=== PATIENT | female | born 1960 | race Hispanic/Latino ===

== ENCOUNTER 2020-10-10 12:30 | Observation (INO) | payer OTHER ==
[~2020-10-10] VITALS: Ht 153.2 cm; Wt 57.6 kg
[2020-10-10] MEDS ORDERED: ONDANSETRON HCL INJ 2MG/ML 2ML 2 MG/ML VIAL IV STA (12:59)
[2020-10-10] MEDS ORDERED: FAMOTIDINE 20 MG/2 ML VIAL IV STA (12:59)
[2020-10-10] MEDS ORDERED: DONNATAL/LIDOCAINE/MAALOX 30 ML SUSP PO SCH (13:15)
--- NOTE | 2020-10-10 13:21 | Emergency Department Note ---
History of Present Illnes History of Present Illness Chief Complaint: Abdominal Complaints History of Present Illness This is a 60 year old female that was seen at an urgent care 3 days ago for diffuse abdominal pain. Patient was told she had inflammation of her intestines was given clindamycin and metronidazole and was also given tramadol for pain. Patient states that the pain is now right lower quadrant, not improving. Patient with nausea, last bowel movement on Saturday. Patient did not take any pain medicine today. Currently pain is crampy, 9 out of 10. . Historian: Patient Arrival Mode: Car Additional Treatment TOPOGRAPHICAL FIELD ASSISTANT: NONE Onset (how long ago): day(s) (6) Location: RLQ Quality: cramp Radiation: Reports non-radiation Severity: moderate Onset quality: gradual Duration (how long): hour(s) (6) Timing of current episode: constant Progression: worsening Chronicity: new Context: Reports other (recent UC/ER); Denies recent illness, Denies recent surgery Relieving factors: none Exacerbating factors: none Associated symptoms: Reports denies other symptoms Past Medical/Family History Physician Review I have reviewed the patient's past medical and family history. Any updates have been documented here. Past Medical History Recent Fever: No Clinical Suspicion of Infectio: No New/Unexplained Change in Ment: No Past Medical History: Cancer Other Medical History: STOMACHE CANCER- DIAGNOSED 2019. Other Surgery: PORT A CATH REMOVAL Review of Systems Review of Systems Constitutional: Reports no symptoms EENTM: Reports no symptoms Cardiovascular: Reports no symptoms Respiratory: Reports no symptoms Gastrointestinal: Reports as per HPI Genitourinary: Reports no symptoms Musculoskeletal: Reports no symptoms Integumentary: Reports no symptoms Neurological: Reports no symptoms Psychological: Reports no symptoms Endocrine: Reports no symptoms Hematological/Lymphatic: Reports no symptoms Physical Exam Related Data Allergies: Coded Allergies: No Known Allergies (Unverified , 10/10/20) Triage Vital Signs Vital Signs Date Time Temp Pulse Resp B/P (MAP) Pulse Ox O2 Delivery O2 Flow Rate FiO2 10/10/20 12:47 99.9 108 18 100/65 100 Vital signs reviewed: Yes Physical Exam CONSTITUTIONAL Constitutional: Present well-developed, Present well-nourished HENT HENT: Present normocephalic, Present atraumatic, Present oropharynx clear/moist, Present nose normal HENT L/R: Present left ext ear normal, Present right ext ear normal EYES Eyes: Reports PERRL, Reports conjunctivae normal NECK Neck: Present ROM normal PULMONARY Pulmonary: Present effort normal, Present breath sounds normal CARDIOVASCULAR Cardiovascular: Present regular rhythm, Present heart sounds normal, Present capillary refill normal, Present tachycardia GASTROINTESTINAL Abdominal: Present soft, Present bowel sounds normal, Present tender (. Tenderness to palpation palpation right lower quadrant, no peritoneal signs) GENITOURINARY Genitourinary: Present exam deferred SKIN Skin: Present warm, Present dry MUSCULOSKELETAL Musculoskeletal: Present ROM normal NEUROLOGICAL Neurological: Present alert, Present oriented x 3, Present no gross motor or sensory deficits PSYCHOLOGICAL Psychological: Present mood/affect normal, Present judgement normal Assessment & Plan Medical Decision Making MDM Pt a 60-year-old female with six-day history of abdominal pain, first diffuse now to right lower quadrant. We'll check a urine, we will also check a CT to make sure this is not appendicitis kidney stone or aorta. Patient currently on clindamycin and metronidazole which would not cover for . EKG interpreted by me shows sinus tachycardia at a rate of 101, left axis deviation, T-wave inversion in V1, nonspecific T-wave inversion in lead 3. Nondiagnostic EKG. Reassessment Reassessment [address] evidence of appendicitis, will admit and treat with zosyn Assessment & Plan Final Impression: (1) Appendicitis Depart Disposition: ADMITTED Last Vital Signs Date Time Temp Pulse Resp B/P (MAP) Pulse Ox O2 Delivery O2 Flow Rate FiO2 10/10/20 12:47 99.9 108 18 100/65 100 Medications in the ED Ondansetron HCl 4 mg NOW STAT IV ; Start 10/10/20 at 12:59; Stop 10/10/20 at 13:07; Status DC Belladonna Alkaloids/ Phenobarbital 10 ml ONCE PO ; Start 10/10/20 at 13:15; Stop 10/10/20 at 13:45 Famotidine 20 mg NOW STAT IV ; Start 10/10/20 at 12:59; Stop 10/10/20 at 13:07; Status DC MICHAEL FRANCO MD Oct 10, 2020 13:21
[2020-10-10] MEDS ORDERED: LIDOCAINE VISC 2% SOLN 15 ML UDC ONE (13:27)
[2020-10-10] MEDS ORDERED: BELLADONNA ALK/PHENOBARBITAL 5 ML UDC ONE (13:27)
[2020-10-10] MEDS ORDERED: MAGNESIUM/ALUMINUM/SIMETHICONE 30 ML UDC ONE (13:27)
[2020-10-10] MEDS ORDERED: LACTATED RINGER'S 500 ML IV ONE (13:30)
[2020-10-10 13:34] LABS: BASOPHILS % 0.3 % (0.0-1.0); EOSINOPHILS # (AUTO) 0.1 (0.0-0.4); EOSINOPHILS % 0.9 % (0.0-6.0); HEMATOCRIT 35.9 % (34.2-44.1); HEMOGLOBIN 11.6 g/dL (12.0-16.0); LYMPHOCYTES # (AUTO) 0.6 (1.0-3.2); LYMPHOCYTES % 6.8 % (18.0-39.1); MEAN CORPUSCULAR HEMOGLOBIN 30.7 pg (28-32); MEAN CORPUSCULAR HGB CONC 32.3 g/dL (31-35); MONOCYTES # (AUTO) 0.6 (0.2-0.8); MONOCYTES % 6.6 % (4.4-11.3); PLATELET COUNT 206 x10e3/uL (140-360); RED BLOOD COUNT 3.78 x10e6/uL (3.6-5.1); RED CELL DISTRIBUTION WIDTH 14.3 % (11.7-14.4)
[2020-10-10 13:51] LABS: CLARITY,URINE CLEAR (CLEAR); COLOR,URINE YELLOW (YELLOW); LEUKOCYTE ESTERASE ,URINE NEGATIVE (NEGATIVE); NITRITE,URINE NEGATIVE (NEGATIVE)
[2020-10-10 13:52] LABS: BILIRUBIN,URINE SMALL (NEGATIVE); KETONES,URINE 2+ (NEGATIVE); PROTEIN,URINE DIPSTICK TRACE (NEGATIVE)
[2020-10-10 14:02] LABS: ALANINE AMINOTRANSFERASE 39 IU/L (0-55); ALBUMIN 3.3 g/dL (3.5-5.0); ALBUMIN/GLOBULIN RATIO 0.7 (0.8-2.0); ALKALINE PHOSPHATASE 311 IU/L (40-150); BLOOD UREA NITROGEN 9 mg/dL (7-26); BUN/CREATININE RATIO 14 (6-25); CALCIUM 9.6 mg/dL (8.4-10.2); CARBON DIOXIDE 25 mmol/L (22-29); CHLORIDE 97 mmol/L (98-107); CREATINE KINASE 8 IU/L (29-168); CREATININE, SERUM 0.65 mg/dL (0.57-1.11); EST GLOMERULAR FILTRATION RATE > 60 ML/MIN (60-); GLUCOSE 97 mg/dL (74-118); LIPASE 5 U/L (8-78); SODIUM 131 mmol/L (136-145)
[2020-10-10 14:07] LABS: BACTERIA,URINE RARE /HPF; EPITHELIAL CELLS,URINE RARE /LPF; RBC,URINE 0-5 /HPF (0-5); WBC,URINE (MAN) 0-5 /HPF (0-5)
[2020-10-10] MEDS ORDERED: LACTATED RINGER'S 1,000 ML ONE (15:01)
[2020-10-10] MEDS ORDERED: SODIUM CHLORIDE 0.9% 50ML 50 ML ONE (15:10)
[2020-10-10] MEDS ORDERED: IOPAMIDOL 370 MG/ML 200 ML INFUS..BTL INJ ONE (15:10)
--- NOTE | 2020-10-10 18:27 | Diagnostic Imaging Report ---
CT Abdomen And Pelvis with Intravenous Contrast INDICATION: 5 days of diffuse abdominal pain, history of gastric carcinoma (diagnosed 2018) ^ABD PAIN ^[id number] ^[id number] ^Y TECHNIQUE: Thin collimation axial images obtained from the diaphragm to the level of the pubic symphysis following the uneventful administration of 100 cc of low osmolar, nonionic intravenous contrast. Dose reduction techniques used: Automated exposure control, adjustment of the mAs and/or kVp according to patient size, standardized low-dose protocol, and/or iterative reconstruction technique. RADIATION DOSE: Total DLP 259.51 mGy*cm Estimated effective dose: (DLP x 0.015 x size factor) mSv CTDIvol has been reviewed. It is below the limits set by the Radiation Protocol Committee (RPC). COMPARISON: None. ABDOMEN FINDINGS: Lung Bases: Bibasilar atelectasis. The distal esophagus is patulous. No pericardial or pleural effusions.. Liver: Mildly decreased attenuation suggestive of steatosis. No evidence for mass. Gallbladder: Not visualized and may be absent. No biliary ductal dilatation. Pancreas: Atrophic. No mass or ductal dilatation. Spleen: Normal size and attenuation. No mass. Adrenal Glands: No evidence for mass. Kidneys: Right: Normal enhancement. No soft tissue mass. Mild collecting system distention. No perinephric inflammation. Left: Normal enhancement. No soft tissue mass. Mild collecting system distention. No perinephric inflammation. Lymph Nodes: No lymphadenopathy. Aorta: Normal in diameter PELVIS FINDINGS: Bowel: Stomach: Postoperative changes from distal partial gastrectomy. The stomach is not dilated. No mural thickening or mass at the anastomosis. Small Bowel: Small amount of fluid in the proximal duodenum and jejunum. Proximal small bowel loops are distended with air to a diameter of 3.5 cm. There is no clear transition point. No mural thickening. Normal mucosal enhancement. Large Bowel: Gaseous distention of the transverse colon without mural thickening. There is fluid in the cecum/ascending colon. The descending colon is collapsed. There is mural thickening of the cecal base at the appendiceal orifice. Appendix: Present and is distended with fluid with mural hyperemia. No surrounding fluid collection or air. Bladder: Mildly underdistended but otherwise normal. The uterus is absent. No adnexal mass. Peritoneum/retroperitoneum: Mild abdominal pelvic ascites. No loculated fluid collection or free air. Fat infarct in the anterior upper peritoneum near the stomach measures 1.9 x 2.2 cm. Bones: Diffusely demineralized. There are multiple compression deformities of the thoracolumbar spine from T11 to T3 of at least 30%. No listhesis. The spinal canal is patent. No diastases of the sacroiliac joints or pubic symphysis. Soft tissues: Nodular thickening of the soft tissues of the posterior pelvis. Please correlate with cosmetic injections. IMPRESSION: 1. Distended inflamed appendix suggestive of appendicitis. Please correlate with clinical exam findings. This may also represent obstruction of the appendiceal orifice as a result of a neoplasm at the cecal base. 2. Distention of the small and large bowel suggestive of ileus. 3. Postoperative changes of the stomach. No evidence of tumor recurrence at the operative site. No mass or lymphadenopathy to suggest metastasis. 4. Multiple age-indeterminate thoracolumbar compression fractures from T11 to L3. No listhesis or retropulsed bone fragments. Signed by: Dr. Bharti Avendano MD on 10/10/2020 6:24 PM
[2020-10-10] MEDS ORDERED: PIPER-TAZ 3.375 GM 50 ML IV STA (18:32)
[2020-10-10] MEDS ORDERED: MORPHINE SULFATE INJ 4 MG/ML INJ 1ML IV PRN (18:45)
[2020-10-10] MEDS ORDERED: SODIUM CHLORIDE 0.9% 1000ML 1,000 ML IV SCH (18:45)
--- OUTSIDE RECORDS SUMMARY | 2020-10-10 19:29 | XMS REPORT | Clinical Summary ---
Author Author [facility] ict Organization [facility] ict Address Unknown Phone Unavailable Care Team Providers Care Awning Installer Name Role Phone PCP Unavailable Allergies Comments Active Allergy Reactions Severity Noted Date No latex allegy No Known Allergies 05/12/2012 Medications End Date Status Medication Sig Dispensed Refills Start Date Active ibuprofen (MOTRIN) 400 mg Take 1 tablet 30 tablet 0 tabletIndications: by mouth 5 Tension headache, every 8 hours Cervicalgia as needed for Pain. Active Problems Problem Noted Date Refractive error 06/27/2015 Cataracts, bilateral 06/27/2015 Retinal drusen 06/27/2015 MRSA (methicillin resistant staph aureus) culture pos itive 06/23/2015 Hx of seizure disorder 06/27/2012 Obesity, unspecified 05/12/2012 Colon cancer screening 05/12/2012 Immunizations Name Administration Dates Next Due Influenza Vaccine 09/04/2012 Family History Medical History Relation Name Comments Diabetes Brother Cancer Mother endometrial cancer Heart Mother Hypertension Mother Cancer Sister endometrial cancer Hypertension Sister Relation Name Status Comments Brother Father Mother Alive Sister Social History Date Tobacco Use Types Packs/Day Years Used Never Smoker Smokeless Tobacco: Never Used Drinks/Week oz/Week Comments Alcohol Use No Sex Assigned at Date Recorded Not on file Industry Job Start Date Occupation Not on file Not on file Not on file Travel End Travel History Travel Start No recent travel history available. Last Filed Vital Signs Not on file Plan of Treatment Health Maintenance Due Date Last Done Comments HPV Cervical Cancer Scrn 1989 Colorectal Cancer Scrn 05/16/2013 05/16/2012, Annual (FIT/FOBT) Age 50 05/12/2012 to 74 Breast Cancer Scrn 04/07/2016 04/07/2015, (Yearly) 09/19/2013, 07/04/2012, Additional history exists Pap Cervical Cancer Scrn 07/03/2017 07/03/2012, 07/03/2012 IMM Influenza Seasonal 08/18/2020 09/04/2012, Oct to January (>/= 19 yrs) 09/04/2012 Results Not on fileafter 10/10/2019 Advance Directives Date Inactivated Comments Code Status Date Activated 10/16/2012 6:16 PM Full Code 10/14/2012 11:18 AM
--- OUTSIDE RECORDS SUMMARY | 2020-10-10 19:29 | XMS REPORT | Clinical Summary ---
Author Author [facility] Address Unknown Phone Unavailable Care Team Providers Care Cell Operator Name Role Phone Pcp, No PCP Unavailable Allergies No Known Allergies Medications End Date Status Medication Sig Dispensed Refills Start Date Active multivitamin capsule Take 1 0 capsule by mouth daily. Active acetaminophen-codeine Take 1 tablet 0 (TYLENOL #3) 300-30 mg by mouth per tablet every 4 (four) hours as needed for Pain. 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 Never 08/19/2020 How many drinks containing alcohol do you have on No t asked a typical day when you are drinking? How often do you have six or more drinks on one Not asked occasion? Sex Assigned at Date Recorded Not on file Last Filed Vital Signs Reading Time Taken Comments Vital Sign 129/75 08/22/2020 12:40 PM CDT Blood Pressure 57 08/22/2020 12:40 PM CDT Pulse 36.8 C (98.3 F) 08/22/2020 12:40 PM CDT Temperature 14 08/22/2020 12:40 PM CDT Respiratory Rate 100% 08/22/2020 12:40 PM CDT Oxygen Saturation - - Inhaled Oxygen Concentration 58.5 kg (129 lb) 08/22/2020 10:10 AM CDT Weight 162.6 cm (5' 4") 08/22/2020 10:10 AM CDT Height 22.14 08/22/2020 10:10 AM CDT Body Mass Index Plan of Treatment Health Maintenance Due Date Last Done Comments BREAST CANCER SCREENING 1959 COLON CANCER SCREENING 1959 COLONOSCOPY CERVICAL CANCER SCREENING 1980 PAP ONLY (Age 21-65) LIPID PANEL 06/02/2025 06/02/2020 INFLUENZA VACCINE Completed 08/10/2020 Procedures Comments Procedure Name Priority Date/Time Associated Diag nosis CARDIAC CATH REPORT - 08/25/2020 SCAN 3:01 PM CDT IR PORT REMOVAL Routine 08/22/2020 Malignant neop lasm of 11:30 AM CDT pyloric antrum (HCC) after 10/10/2019 Results * CARDIAC CATH REPORT - SCAN (08/25/2020 3:01 PM CDT) Narrative Performed At This result has an attachment that is n ot available. * IR Port Removal (08/22/2020 11:30 AM CDT) Specimen Narrative Performed At FINAL REPORT [facility] [employer] PROCEDURE: Venous Port Removal CLINICAL HISTORY: C16.3 MOLTEN IRON POURER: Nick Linda DO, JD ANESTHESIA: Conscious sedation was prov ided by radiology nursing using constant hemodynamic monitoring f or 30 minutes. Versed IV 0.5 mg, Fentanyl IV 25 mcg. DOSE INFORMATION - Ka,r: 1 mGy Estimated Blood Loss: < 5cc Samples: None. PROCEDURE: The risks, benefits, and alt ernatives to the procedure were discussed with the patient. All questions were answered and written informed consent was obtained. A universal timeout was performed prior to starting the procedu re. For Prevention of Central Venous Catheter (CVC)-Related Bloodstre am Infections all elements of maximal sterile barrier technique, hand hygiene, skin preparation and sterile techniques were followed. Preprocedure imaging was obtained. Afte r local anesthesia, an incision was made through the existing scar over the right chest port reservoir. Using sharp and blunt dissec tion and gentle traction, the port reservoir and catheter were remove d in their entirety. After confirming hemostasis, the pocket was c losed with 3-0 Vicryl suture. The incision was covered with glue, Lobo ri-Strips and a sterile dressing. The patient tolerated the pro cedure well without immediate complication. IMPRESSION: Successful removal of a left chest port . Signed: Nick Linda MD Report Verified Date/Time: 08/22/2020 17:40:07 Reading Location: [facility] Radiology Readi ng Room Procedure Note Interface, External Ris In - 08/22/2020 5:42 PM CDT FINAL REPORT PROCEDURE: Venous Port Removal CLINICAL HISTORY: C16.3 MOLTEN IRON POURER: Nick Linda DO, JD ANESTHESIA: Conscious sedation was provided by radiology nursing using constant hemodynamic monitoring for 30 minutes. Versed IV 0.5 mg, Fentanyl IV 25 mcg. DOSE INFORMATION - Ka,r: 1 mGy Estimated Blood Loss: < 5cc Samples: None. PROCEDURE: The risks, benefits, and alternatives to the procedure were discussed with the patient. All questions were answered and written informed consent was obtained. A universal timeout was performed prior to starting the procedure. For Prevention of Central Venous Catheter (CVC)-Related Bloodstream Infections all elements of maximal sterile barrier technique, hand hygiene, skin preparation and sterile techniques were followed. Preprocedure imaging was obtained. After local anesthesia, an incision was made through the existing scar over the right chest port reservoir. Using sharp and blunt dissection and gentle traction, the port reservoir and catheter were removed in their entirety. After confirming hemostasis, the pocket was closed with 3-0 Vicryl suture. The incision was covered with glue, Steri-Strips and a sterile dressing. The patient tolerated the procedure well without immediate complication. IMPRESSION: Successful removal of a left chest port. Signed: Nick Linda MD Report Verified Date/Time: 08/22/2020 17:40:07 Reading Location: [facility] Radiology Reading Room Performing Organization Address City/State/Zipcode Ph one Number GE RIS after 10/10/2019 Insurance Type Payer Benefit Subscriber ID Effective Phone Address Plan / Dates Group HMO/POS [employer]ET[employer] - [employer] CARE AET[employer] OPEN [id number] 2019-P ACCESS HMO resent NAP Advance Directives For more information, please contact: [phone] Date Inactivated Comments Code Status Date Activated 08/22/2020 6:06 PM Full Code 08/22/2020 11:57 AM This code status was determined by: Patient
--- OUTSIDE RECORDS SUMMARY | 2020-10-10 19:29 | XMS REPORT | Continuity of Care Document ---
Author Author [facility] t Organization [facility] Address 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 Role Phone Pcp, No PCP Unavailable Emi FRANCO Attphys Unavailable Brandon Schofield MD Attphys Carmelo Smith DO Attphys [phone] Miguelina Gauthiermo Attphys Miguelina Gauthier Admphys Payers Payer Name Policy Type Policy Number Effective Date Expiration Date Lowell laura AETNA - MGD CAREAETNA OPEN ACCESS HMO [id number] 2019- PresentHMO/POS [id number] 2019 00:00:00 [facility] Problems Condition Name Condition Details Condition Category Status Onset Date Resolution Date Last Treatment Date Treating Clinician Comments Source Refractive error Refractive error Disease Active 2015-06-27 00:00:00 [facility] Cataracts, bilateral Cataracts, bilateral Disease Active 00:00:00 [facility] Retinal drusen Retinal drusen Disease Active 2015-06-27 00:00:00 [facility] MRSA (methicillin resistant staph aureus) culture posi tive MRSA (methicillin resistant staph aureus) culture positive Disease Active 2015-06-23 00:00: 00 [facility] Hx of seizure disorder Hx of seizure disorder Disease Active 2012-06-27 00:00:00 [facility] Obesity, unspecified Obesity, unspecified Disease Active 00:00:00 [facility] Colon cancer screening Colon cancer screening Disease Active 2012-05-12 00:00:00 [facility] Anemia (disorder) Anem ia (disorder) Active Problem 06/17/2019 transfused in April at [facility] hosp. [facility] Problem Active 2019-06-17 04:02:08 [facility] Epilepsy (disorder) Epil epsy (disorder) Active Problem 06/17/2019 last seizure 25 yrs ago [facility] Problem Active 2019-06-17 04 :02:08 [facility] Malignant tumor of stomach (disorder) Malignant tumor of stomach (disorder) Active Problem 06/17/2019 [facility] Problem Active 2019-06-17 04:02:08 [facility] Gastritis (disorder) Jaclyn ritis (disorder) Active Problem 06/17/2019 [facility] Problem Active 2019-06-17 04:02:08 [facility] Malignant neoplasm of stomach, unspecified Malignant neoplasm of stomach, unspecified 06/15/2019 06/17/2019 [facility] Problem 2019-06-15 05:00:00 2019-06-17 04:02:08 2019-06-17 04:02:08 M alejandra Stern Allergies, Adverse Reactions, Alerts Allergy Name Allergy Type Status Severity Reaction(s) Onset Date Inacti ve Date Treating Clinician Comments Source No Known Allergies DA Active U 2018-12-24 00:00:00 [facility] Family History Family Member Diagnosis Comments Start Date Stop Date Source Natural brother Diabetes [facility] Natural mother Cancer [facility] Natural mother Heart [facility] Natural mother Hypertension [facility] Natural sister Cancer [facility] Natural sister Hypertension [facility] Social History Social Habit Start Date Stop Date Quantity Comments Source History SDOH Alcohol Std Drinks [facility] History SDOH Alcohol Binge [facility] Sex Assigned [facility] Tobacco use and exposure 2020-08-22 00:00:00 2020-08-22 00:00:00 Neve r used [facility] History SDOH Alcohol Frequency 2020-08-19 00:00:00 2020-08-19 00:00:0 0 1 [facility] Alcohol intake 2015-10-14 00:00:00 2015-10-14 00:00:00 Current non-drinker of alcohol (finding) [facility] Smoking Status Start Date Stop Date Source Social History 2019-06-12 19:38:00 2019-06-12 19:38:00 [facility] Never smoker [facility] Medications Ordered Medication Name Filled Medication Name Start Date Stop Da te Current Medication? Ordering Clinician Indication Dosage Frequency Signature (SIG) Comments Components Source multivitamin capsule 2020-08-22 16:06:40 Yes 1{capsule} QD Take 1 capsule by mouth daily. [facility] acetaminophen-codeine (TYLENOL #3) 300-30 mg per tablet 2020-08-22 16:06:40 Yes 1{tbl} Take 1 tablet b y mouth every 4 (four) hours as needed for Pain. [facility] Hydralazine 2019-06-15 13:14:00 No 10 mg = 0.5 mL, Injection, IV Push, As Indicated PRN for hypertension, first dose 06/15/19 8:14:00 CDT [facility] Diphenhydramine 2019-06-15 13:14:00 No 25 mg = 0.5 mL, Injection, IV Push, Once PRN for itching, first dose 06/15/19 8:14:00 CDT [facility] Levalbuterol 0.21 MG/ML Inhalant Solution [Xopenex] 06-15 13:14:00 No 0.63 mg = 3 mL, Soln, NEB, Once PRN for wheezing, first dose 06/15/19 8:14:00 CDT [facility] Ondansetron 2019-06-15 13:14:00 No 4 mg = 2 mL, Injection, IV Push, q15min PRN for nausea, order duration: 2 doses, first dose 06/15/19 8:14:00 CDT, stop date [facility] 2019-06-15 13:14:00 No 12.5 mg = 0.5 mL, Injection, IM, Once PRN for vomiting, first dose 06/15/19 8:14:00 T [facility] Labetalol 2019-06-15 13:14:00 No 5 mg = 1 mL, Injection, IV Push, As Indicated PRN for hypertension, first dose 06/15/19 8:14:00 T [facility] Robinul 2019-06-15 13:14:00 No 0.2 mg = 1 mL, Injection, IV Push, Once PRN for bradycardia, first dose 06/15/19 8:14:00 T [facility] Dilaudid 2019-06-15 13:14:00 No 0.5 mg = 0.5 mL, Injection, IV Push, q10min PRN for pain severe (7-10), first dose 06/15/19 8:14:00 [facility] LR 1,000 mL 2019-06-15 13:14:00 No 1,000 mL, IV, 75 mL/hr, start date 06/15/19 8:14:00 [facility] nn Saline Lock Flush 2019-06-15 13:14:00 No 10 mL, Soln, IV Push, As Indicated PRN for flush, first dose 06/15/19 8:14:00 [facility] Morphine 2019-06-15 13:14:00 No 2 mg = 0.2 mL, Injection, IV Push, q5min PRN for pain, first dose 06/15/19 8:14:00 [facility] Misc Medication 2019-06-15 13:13:00 No 1,000 mL, Soln-IV, IV, Once, first dose 06/15/19 8:13:00 CDT, stop date 06/15/19 8:13:00 T [facility] ePHEDrine 2019-06-15 12:58:00 No 10 mg = 0.2 mL, Injection, IV, Once, first dose 06/15/19 7:58:00 CDT, stop date 06/15/19 7:58:00 [facility] ondansetron 2019-06-15 12:53:00 No 4 mg = 2 mL, Injection, IV, Once, first dose 06/15/19 7:53:00 CDT, stop date 06/15/19 7:53:00 T [facility] fentaNYL 2019-06-15 12:50:00 No 25 mcg = 0.5 mL, Injection, IV, Once, first dose 06/15/19 7:50:00 CDT, stop date 06/15/19 7:50:00 CDT [facility] raNITIdine 2019-06-15 12:46:00 No 50 mg, Injection, IV, Once, first dose 06/15/19 7:46:00 CDT, stop date 06/15/19 7:46:00 CDT [facility] dexamethasone 2019-06-15 12:44:00 No 8 mg = 2 mL, Injection, IV, Once, first dose 06/15/19 7:44:00 CDT, stop date 06/15/19 7:44:00 CDT [facility] ePHEDrine 2019-06-15 12:43:00 No 10 mg = 0.2 mL, Injection, IV, Once, first dose 06/15/19 7:43:00 CDT, stop date 06/15/19 7:43:00 CDT [facility] fentaNYL 2019-06-15 12:38:00 No 25 mcg = 0.5 mL, Injection, IV, Once, first dose 06/15/19 7:38:00 CDT, stop date 06/15/19 7:38:00 CDT [facility] ePHEDrine 2019-06-15 12:38:00 No 5 mg = 0.1 mL, Injection, IV, Once, first dose 06/15/19 7:38:00 CDT, stop date 06/15/19 7:38:00 CDT [facility] ceFAZolin 2019-06-15 12:31:00 No 2 gm, Soln-IV, IV Piggyback, Once, first dose 06/15/19 7:31:00 CDT, stop date 06/15/19 7:31:00 CDT [facility] ePHEDrine 2019-06-15 12:31:00 No 10 mg = 0.2 mL, Injection, IV, Once, first dose 06/15/19 7:31:00 CDT, stop date 06/15/19 7:31:00 CDT [facility] propofol 2019-06-15 12:25:00 No 100 mg = 10 mL, Emulsion, IV, Once, first dose 06/15/19 7:25:00 CDT, stop date 06/15/19 7:25:00 CDT [facility] lidocaine 2019-06-15 12:25:00 No 50 mg = 2.5 mL, Injection, IV, Once, first dose 06/15/19 7:25:00 CDT, stop date 06/15/19 7:25:00 CDT [facility] midazolam 2019-06-15 12:16:00 No 2 mg = 2 mL, Injection, IV, Once, first dose 06/15/19 7:16:00 CDT, stop date 06/15/19 7:16:00 CDT [facility] fentaNYL 2019-06-15 12:16:00 No 50 mcg = 1 mL, Injection, IV, Once, first dose 06/15/19 7:16:00 CDT, stop date 06/15/19 7:16:00 CDT [facility] Cefazolin 2019-06-15 12:00:00 No 2 gm, Soln-IV, IV Piggyback, Once, infuse over 30 minutes, first dose 06/15/19 7:00:00 CDT, stop date 06/15/19 7:00:00 CDT, patient weight 50-120 kg, Prophylaxis [facility] LR 1,000 mL 2019-06-15 11:43:00 No 1,000 mL, IV, 30 mL/hr, start date 06/15/19 6:43:[facility] L[facility] 2% 0.2 mL IV Start [[facility]] 2019-06-15 11:43:00 No 0.2 mL, Injection, Subcutaneous, Once PRN for other (see comment), first dose 06/15/19 6:43:00 CDT [facility] Omeprazole 2019-06-12 19:48:00 Yes 1 tab, Oral, Daily, gastritis [facility] ibuprofen (MOTRIN) 400 mg tablet 2015-03-28 00:00:00 Yes Cervicalgia 400mg Take 1 tablet by mouth every 8 hours as needed for Moe nSupa [facility] Immunizations Ordered Immunization Name Filled Immunization Name Date Status Comments Source Influenza Vaccine 2012-09-04 00:00:00 Completed [facility] Vital Signs Vital Name Observation Time Observation Value Comments Source Systolic blood pressure 2020-08-22 12:40:00 129 mm[Hg] [facility] Diastolic blood pressure 2020-08-22 12:40:00 75 mm[Hg] [facility] Heart rate 2020-08-22 12:40:00 57 /min [facility] Body temperature 2020-08-22 12:40:00 36.83 Estephanie [facility] Respiratory rate 2020-08-22 12:40:00 14 /min [facility] Oxygen saturation in Arterial blood by Pulse oximetry 2019-11 12:40:00 100 [facility] height 2020-08-22 10:10:00 162.6 cm [facility] Body weight 2020-08-22 10:10:00 58.514 kg [facility] BMI 2020-08-22 10:10:00 22.14 kg/m2 [facility] Systolic (mm Hg) 2019-06-15 14:05:00 [facility] [place] Diastolic (mm Hg) 2019-06-15 14:05:00 [facility] [place] Respitory Rate 2019-06-15 14:05:00 [facility] Systolic (mm Hg) 2019-06-15 13:50:00 [facility] Diastolic (mm Hg) 2019-06-15 13:50:00 [facility] [place] Respitory Rate 2019-06-15 13:50:00 [facility] Heart Rate 2019-06-15 13:50:00 [facility] Heart Rate 2019-06-15 13:40:00 [facility] [place] Respitory Rate 2019-06-15 13:40:00 [facility] [place] Systolic (mm Hg) 2019-06-15 13:40:00 [facility] Diastolic (mm Hg) 2019-06-15 13:40:00 [facility] [place] Heart Rate 2019-06-15 13:30:00 [facility] [place] Temperature Oral (F) 2019-06-15 13:10:00 36.8 E[facility] Temperature Oral (F) 2019-06-15 12:10:00 36.7 [facility] Height 2019-06-15 12:10:00 162.56 cm [facility] Height 2019-06-12 19:20:00 162.56 cm [facility] Procedures Procedure Date / Time Performed Performing Clinician [facility] e CARDIAC CATH REPORT - SCAN 2020-08-25 15:01:04 Provider, Default Scanning [facility] IR PORT REMOVAL 2020-08-22 11:30:00 Brandon Schofield [facility] INSERTION TUNNELED IMPLANTABLE VENOUS ACCESS PORT 3656 1 (N/A)<sup>1</sup> 2019-06-15 12:47:00 [facility] Cholecystectomy 2019-05-01 05:00:00 [facility] partial gastrectomy<sup>2, 3, 4</sup> 2019-05-01 05:00:00 [facility] eye surgery<sup>5</sup> 2014-11-18 00:00:00 [facility] Hysterectomy<sup>6</sup> 2007-11-18 00:00:00 [facility] orial [place] Plan of Care Planned Activity Planned Date Details Comments Source Future Scheduled Test 2025-06-02 00:00:00 Lipid panel (proce dure) [code = 25918996] [facility] Future Scheduled Test 2020-08-18 00:00:00 IMM Influenza Seas onal Aug to January (>/= 19 yrs) [code = IMM Influenza Seasonal Aug to January (>/= 19 yrs)] [facility] Scheduled Test 2017-07-03 00:00:00 Screening for joce gnant neoplasm of cervix (procedure) [code = 658219474] [facility] Scheduled Test 2016-04-07 00:00:00 Breast Cancer Scrn (Yearly) [code = Breast Cancer Scrn (Yearly)] [facility] Scheduled Test 2013-05-16 00:00:00 Screening for joce gnant neoplasm of colon (procedure) [code = 101910591] [facility] Scheduled Test 1989 00:00:00 Screening for joce gnant neoplasm of cervix (procedure) [code = 559280280] [facility] Scheduled Test 1980 00:00:00 Screening for joce gnant neoplasm of cervix (procedure) [code = 304406033] [facility] Future Scheduled Test 1959 00:00:00 Screening for joce gnant neoplasm of breast (procedure) [code = 936027831] [facility] Future Scheduled Test 1959 00:00:00 Screening for joce gnant neoplasm of colon (procedure) [code = 731032768] [facility] Start Date/Time End Date/Time Encounter Type Admission Type [facility] Care Department Encounter ID Source 2019-05-01 07:59:00 Inpatient [facility] KATE 75 [id number] [facility] 2019-06-15 06:22:32 2019-06-15 10:00:00 Outpatient Mikey Sam [id number] Results Test Description Test Time Test Comments Results Result Comments Source CT ABDOMEN/PELVIS W 2020-10-10 18:12:00 [facility] 1960 Sex: [place] [id number] Patient Name: NIK NORTH MR #: [id number] : 1960 Age/Sex: 60/F Req #: [id number] [facility] Physician: Ordered by: MICHAEL FRANCO MD Report #: [id number] Location: Room/Bed: Procedure: [id number] CT/CT ABDOMEN/PELVIS W Exam Date: 10/10/20 Exam Time: 1543 REPORT STATUS: Signed CT Abdomen And Pelvis with Intravenous Contrast INDICATION: 5 days of diffuse abdominal pain, history of gastric carcinoma (diagnosed 2019) ABD PAIN 20201010 1543 Y TECHNIQUE: Thin collimation axial images obtained from the diaphragm to the level of the pubic symphysis following the uneventful administration of 100 cc of low osmolar, nonionic intravenous contrast. Dose reduction techniques used: Automated exposure control, adjustment of the mAs and/or kVp according to patient size, standardized low-dose protocol, and/or iterative reconstruction technique. RADIATION DOSE: Total DLP 259.51 mGy*cm Estimated effective dose: (DLP x 0.015 x size factor) mSv CTDIvol has been reviewed. It is below the limits set by the Radiation Protocol Committee (RPC). COMPARISON: None. ABDOMEN FINDINGS: Lung Bases: Bibasilar atelectasis. The distal esophagus is patulous. No pericardial or pleural effusions.. Liver: Mildly decreased attenuation suggestive of steatosis. No evidence for mass. Gallbladder: Not visualized and may be absent. No biliary ductal dilatation. Pancreas: Atrophic. No mass or ductal dilatation. Spleen: Normal size and attenuation. No mass. Adrenal Glands: No evidence for mass. Kidneys: Right: Normal enhancement. No soft tissue mass. Mild collecting system distention. No perinephric inflammation. Left: Normal enhancement. No soft tissue mass. Mild collecting system distention. No perinephric inflammation. Lymph Nodes: No lymphadenopathy. Aorta: Normal in diameter PELVIS FINDINGS: Bowel: Stomach: Postoperative changes from distal partial gastrectomy. The stomach is not dilated. No mural thickening or mass at the anastomosis. Small Bowel: Small amount of fluid in the proximal duodenum and jejunum. Proximal small bowel loops are distended with air to a diameter of 3.5 cm. There is no clear transition point. No mural thickening. Normal mucosal enhancement. Large Bowel: Gaseous distention of the transverse colon without mural thickening. There is fluid in the cecum/ascending colon. The descending colon is collapsed. There is mural thickening of the cecal base at the appendiceal orifice. Appendix: Present and is distended with fluid with mural hyperemia. No surrounding fluid collection or air. Bladder: Mildly underdistended but otherwise normal. The uterus is absent. No adnexal mass. Peritoneum/retroperitoneum: Mild abdominal pelvic ascites. No loculated fluid collection or free air. Fat infarct in the anterior upper peritoneum near the stomach measures 1.9 x 2.2 cm. Bones: Diffusely demineralized. There are multiple compression deformities of the thoracolumbar spine from T11 to T3 of at least 30%. No listhesis. The spinal canal is patent. No diastases of the sacroiliac joints or pubic symphysis. Soft tissues: Nodular thickening of the soft tissues of the posterior pelvis. Please correlate with cosmetic injections. IMPRESSION: 1. Distended inflamed appendix suggestive of appendicitis. Please correlate with clinical exam findings. This may also represent obstruction of the appendiceal orifice as a result of a neoplasm at the cecal base. 2. Distention of the small and large bowel suggestive of ileus. 3. Postoperative changes of the stomach. No evidence of tumor recurrence at the operative site. No mass or lymphadenopathy to suggest metastasis. 4. Multiple age-indeterminate thoracolumbar compression fractures from T11 to L3. No listhesis or retropulse d bone fragments. Signed by: Dr. Bharti Dodson MD on 10/10/2020 6:24 PM Dictated By: BHARTI DODSON MD 23 Transcribed By: WILDA on 10/10/201823 COPY TO: MICHAEL FRANCO MD ANG, REMOVAL OF TUNNELED CVC W/PORT 2020-08-22 17:40:00 Reason f or Exam:->C16.3 FINAL REPORT PROCEDURE: Venous Port Removal CLINICAL HISTORY: C16.3 FENCE SETTER: Nick Smith DO, JD ANESTHESIA: Conscious sedation was provided [...] of a left chest port. Signed: Nick Smith Verified Date/Time: 08/22/2020 17:40:07 Reading Location: [facility] Radiology Reading Room Port Removal 2020-08-22 17:40:00 Miguel Padgett Ris In - 08/22/2020 5:42 PM CDTFINAL REPORT PROCEDURE: Venous Port Removal CLINICAL HISTORY: C16.3 FENCE SETTER: Nick Smith DO, JD ANESTHESIA: Conscious sedation was provided [...] with 3-0 Vicryl suture. The incision was cover ed with glue, Steri-Strips and a sterile dressing. The patient tolerated the procedure well without immediate complication. IMPRESSION: Successful removal of a left chest port. Signed: Nick Smith MDReport Verified Date/Time: 08/22/2020 17:40:07 Reading Location: [facility] Radiology Reading Room [facility] LABORATORY 2019-06-15 12:18:00 0.5 [facility] LABORATORY 2019-06-15 12:18:00 9 [facility] [place] LABORATORY 2019-06-15 12:18:00 97 [facility] [place] LABORATORY 2019-06-15 12:18:00 27 [facility] LABORATORY 2019-06-15 12:18:00 30 [facility] [place] LABORATORY 2019-06-15 12:18:00 Reported (06/15/19 7:18 AM) [facility] LABORATORY 2019-06-15 12:18:00 16 [facility] [place] LABORATORY 2019-06-15 12:18:00 10.2 [facility] LABORATORY 2019-06-15 12:18:00 3.8 [facility] LABORATORY 2019-06-15 12:18:00 141.0 [facility] [place] LABORATORY 2019-06-15 12:18:00 1.25 [facility] LABORATORY 2019-06-15 12:18:00 103 [facility] [place] - XR CHEST 1V 2018-12-24 19:20:00 Patient Na me: NIK NORTH Unit No: [id number] EXAMS: CPT CODE: [id number] XR CHEST 1V 73912 AP VIEW OF THE CHEST LOCATION: B2 CLINICAL HISTORY: Shortness of breath. COMPARISON: No previous exam available. FINDINGS: The cardiomediastinal shadow is within normal limits. The lungs are clear. No pleural fluids. Degenerative bony changes are noted. No acute bony abnormality is found. IMPRESSION: No radiographic evidence of acute cardiopulmonary disease process. at 1920 Reported and signed by: Tiffanie Hickman MD CC: Gigi Owens MD Technologist: Palma Polanco, RT(R) Transcrpt Date/Tm/Trnsp: 12/24/2018 (1919) [email or web address] Orig Print D/T: S: 12/24/2018 (1923) [facility] NAME: NIK NORTH [id number] [address] PHYS: [email or web address] [place] [address] : 1960 AGE: 58 [id number] LOC: HECTOR PHONE #: [phone] EXAM DATE: 12/24/2018 STATUS: JUDAH ER FAX #: [phone] RADIOLOGY NO: PAGE 1 Signed Report - CT ANGIO NECK W WO CONT 2018-12-24 19:17:00 P atient Name: NIK NORTH Unit No: [id number] EXAMS: CPT CODE: [id number] CT ANGIO NECK W WO CONT [id number] Location: T 18 CTA neck, 12/24/18 TECHNIQUE: CTA examination of the neck with contrast using vascular protocol performed on a helical scanner. Scanning conducted using ultrathin contiguous 0.6mm axial slice technique from aortic arch through skull base. Patient given 100 mL of Isovue 360 for contrast. High resolution sagittal and coronal reformatted images acquired on the PAC workstation. 3D volume rendering images also acquired by interpreting radiologist using VITREA software provided on the PAC system . The examination was conducted on an updated helical CT scanner utilizing low- dose radiation technique. Automatic exposure technique was utilized to reduce radiation dose CLINICAL HISTORY: Headache and neck pain. Emergency room presentation Comparison exam: Head CT exam 12/24/18 and to the CTA assessment of the head conducted at the same time FINDINGS: No findings of concern for vasculitis. No findings of concern for vascular dissection. No measurable stenosis in either carotid system with normal enhancement. Scratch the Likewise there is normal enhancement seen in the vertebral arteries without significant plaque formation or findings of concern for vertebral artery dissection. Normal branching pattern of the vessels arising from the aortic arch. No significant stenosis of the prebulbar portion of either carotid artery is seen. The brachiocephalic artery and subclavian arteries exhibit normal enhancement. No significant atherosclerotic plaque formation is seen. IMPRESSION: Unremarkable CTA examination of the neck without measurable carotid stenosis. No findings of concern for dissection. No compromise of the vertebral arteries Location: T 18 CTA of the brain 12/24/18 TECHNIQUE: CTA examination of the gyedtg-gl-Bopdiz was performed on a helical scanner with patient given 100 mL of Isovue 360. Vascular protocol performed. Ultrathin slice axial images acquired from skull base through vertex of brain utilizing contiguous 0.6mm slice thickness with coronal and sagi ttal reformatted images acquired on the [facility] NAME: NIK NORTH [id number] [address] PHYS: [place] [address] : 1960 AGE: 58 SEX: F LOC: HECTOR PHONE #: [phone] EXAM DATE: 12/24/2018 STATUS: REG ER FAX #: [phone] RAD #: D/C DT PAGE 1 Signed Report (CONTINUED) Patient Name: NIK NORTH Unit No: [id number] EXAMS: CPT CODE: [id number] CT ANGIO NECK W WO CONT 02605 <Continued> PAC workstation. Post contrast only images acquired. 3D reformatted images also acquired of the intracranial vessels using VITREA software by the interpreting radiologist . The examination was performed on an updated helical CT scanner utilizing low-dose radiation technique. Automatic exposure technique was utilized to reduce radiation dose. CLINICAL HISTORY: Headache and neck pain. ER presentation FINDINGS: Do not see any findings suggestive of an aneurysm or vascular malformation. No discrete area of stenosis or pruning of the vessels is seen. No large branch occlusion is seen. No findings suggestive of vertebro basilar insufficiency is seen. No space occupying process is seen. No midline shift or abnormal enhancement is seen. No intracranial hemorrhage is seen with assessment for subarachnoid hemorrhage limited since post contrast images only acquired. There is fairly normal enhancement of the deep venous system without findings of concern for venous sinus thrombus. Do not see definite patency of the anterior communicating artery. Both posterior communicating arteries are patent. IMPRESSION: Normal CTA examination [id number] other than lack of visualization of the anterior communicating artery, a variant. No significant intracranial stenosis or vascular abnormality identified. No abnormal enhancement. at 1917 Reported and signed by: Marky Ruiz MD CC: Gigi Owens MD Technologist: Gene Mendes RT(R) CTDI: DLP: Trnscrpt: 12/24/2018 (1916) t.SDR.DAS6 [facility] NAME: NIK NORTH [id number] PHYS: [place] [address] : 1960 AGE: 58 SEX: F LOC: Z.ERS PHONE #: [phone] EXAM DATE: 12/24/2018 STATUS: REG ER FAX #: [phone] RAD #: D/C DT PAGE 2 Signed Report Patient Name: NIK NORTH Unit No: [id number] EXAMS: CPT CODE: [id number] CT ANGIO NECK W [place] CONT 82034 <Continued> Orig Print D/T: S: 12/24/2018 (1920) [facility] NAME: NIK NORTH [id number] PHYS: BENDALTON.Milagros [place] [address] : 1960 AGE: 58 SEX: F LOC: Z.ERS PHONE #: [phone] EXAM DATE: 12/24/2018 STATUS: REG ER FAX #: [phone] RAD #: D/C DT PAGE 3 Signed Report - CT ANGIO HEAD 2018-12-24 19:17:00 Patient Nam e: NIK NORTH Unit No: [id number] EXAMS: CPT CODE: [id number] CT ANGIO HEAD [address] Location: T 18 CTA neck, 12/24/18 TECHNIQUE: CTA examination of the neck with contrast using vascular protocol performed on a helical scanner. Scanning conducted using ultrathin contiguous 0.6mm axial slice technique from aortic arch through skull base. Patient given 100 mL of Isovue 360 for contrast. High resolution sagittal and coronal reformatted images acquired on the PAC workstation. 3D volume rendering images also acquired by interpreting radiologist using VITREA software provided on the PAC system . The examination was conducted on an updated helical CT scanner utilizing low- dose radiation technique. Automatic exposure technique was utilized to reduce radiation dose CLINICAL HISTORY: Headache and neck pain. Emergency room presentation Comparison exam: Head CT exam 12/24/18 and to the CTA assessment of the head conducted at the same time FINDINGS: No findings of concern for vasculitis. No findings of concern for vascular dissection. No measurable stenosis in either carotid system with normal enhancement. Scratch the Likewise there is normal enhancement seen in the vertebral arteries without significant plaque formation or findings of concern for vertebral artery dissection. Normal branching pattern of the vessels arising from the aortic arch. No significant stenosis of the prebulbar portion of either carotid artery is seen. The brachiocephalic artery and subclavian arteries exhibit normal enhancement. No significant atherosclerotic plaque formation is seen. IMPRESSION: Unremarkable CTA examination of the neck without measurable carotid stenosis. No findings of concern for dissection. No compromise of the vertebral arteries Location: T 18 CTA of the brain 12/24/18 TECHNIQUE: CTA examination of the ljrpep-ar-Wmjqyx was performed on a helical scanner with patient given 100 mL of Isovue 360. Vascular protocol performed. Ultrathin slice axial images acquired from skull base through vertex of brain utilizing contiguous 0.6mm slice thickness with coronal and sagi ttal reformatted images acquired on the [facility] NAME: NIK NORTH [id number] PHYS: [place] [address] : 1960 AGE: 58 SEX: F LOC: ZY[place] PHONE #: [phone] EXAM DATE: 12/24/2018 STATUS: REG ER FAX #: [phone] RAD #: D/C DT PAGE 1 Signed Report (CONTINUED) Patient Name: NIK NORTH Unit No: [id number] EXAMS: CPT CODE: [id number] CT ANGIO HEAD [address] <Continued> PAC workstation. Post contrast only images acquired. 3D reformatted images also acquired of the intracranial vessels using VITREA software by the interpreting radiologist . The examination was performed on an updated helical CT scanner utilizing low-dose radiation technique. Automatic exposure technique was utilized to reduce radiation dose. CLINICAL HISTORY: Headache and neck pain. ER presentation FINDINGS: Do not see any findings suggestive of an aneurysm or vascular malformation. No discrete area of stenosis or pruning of the vessels is seen. No large branch occlusion is seen. No findings suggestive of vertebro basilar insufficiency is seen. No space occupying process is seen. No midline shift or abnormal enhancement is seen. No intracranial hemorrhage is seen with assessment for subarachnoid hemorrhage limited since post contrast images only acquired. There is fairly normal enhancement of the deep venous system without findings of concern for venous sinus thrombus. Do not see definite patency of the anterior communicating artery. Both posterior communicating arteries are patent. IMPRESSION: Normal CTA examination lfrkna-yw-Bhekyg other than lack of visualization of the anterior communicating artery, a variant. No significant intracranial stenosis or vascular abnormality identified. No abnormal enhancement. at 1917 Reported and signed by: Marky Ruiz MD CC: Gigi Owens MD Technologist: Gene Mendes RT(R) CTDI: DLP: Trnscrpt: 12/24/2018 (1916) t.[email or web address].DAS6 [facility] NAME: NIK NORTH [id number] PHYS: [place] [address] : 1960 AGE: 58 SEX: F LOC: Arabella[place] PHONE #: [phone] EXAM DATE: 12/24/2018 STATUS: REG ER FAX #: [phone] RAD #: D/C DT PAGE 2 Signed Report Patient Name: NIK NORTH Unit No: [id number] EXAMS: CPT CODE: [id number] CT ANGIO HEAD [address]603 <Continued> Orig Print D/T: S: 12/24/2018 (1920) [facility] NAME: NIK NORTH [id number] PHYS: [place]EL[place] [address] : 1960 AGE: 58 SEX: F LOC: [place] PHONE #: [phone] EXAM DATE: 12/24/2018 STATUS: REG ER FAX #: [phone] RAD #: D/C DT PAGE 3 Signed Report - CT HEAD/BRAIN W/O CONT 2018-12-24 19:06:00 Pa tient Name: NIK NORTH Unit No: [id number] EXAMS: CPT CODE: [id number] CT HEAD/BRAIN W/O CONT 60268 Location: T18 CT head, 12/24/18 COMPARISON EXAMS:None relevant to this study TECHNIQUE: CT examination of the brain was performed without contrast on a helical scanner. Scanning conducted from skull base to vertex in the axial plane acquiring contiguous 5mm slice thickness . The examination was performed on a uptake at helical CT scanner utilizing low-dose radiation technique. Automatic exposure control timing was utilized to minimize radiation dose. CLINICAL HISTORY: Headache. Patient presenting to the ER. FINDINGS: No positive mass-effect, midline shift, extra- axial fluid collections or intracranial hemorrhages seen. In particular, no subarachnoid hemorrhage is identified. No intra or extra-axial masses. Bone windows unremarkable. No significant sinus disease is noted. No acute territorial infarction is seen. IMPRESSION: Unremarkable CT examination of the brain without contrast at 1906 Reported and signed by: Marky Ruiz MD CC: Gigi Owens MD Technologist: Gene Mendes RT(R) CTDI: DLP: Trnscrpt: 12/24/2018 (1905) t.[email or web address].DAS6 [facility] NAME: NIK NORTH [id number] PHYS: Gigi Julien MD [place] [id number] : 1960 AGE: 58 SEX: F LOC: hoohbe PHONE #: [phone] EXAM DATE: 12/24/2018 STATUS: REG ER FAX #: [phone] RAD #: D/C DT PAGE 1 Signed Report Patient Name: NIK NORTH Unit No: [id number] EXAMS: CPT CODE: [id number] CT HEAD/BRAIN W/O CONT 67789 <Continued> Orig Print D/T: S: 12/24/2018 (1908) [facility] NAME: NIK NORTH [id number] PHYS: [place] [address] : 1960 AGE: 58 SEX: F LOC: hoohbe PHONE #: [phone] EXAM DATE: 12/24/2018 STATUS: REG ER FAX #: [phone] RAD #: D/C DT PAGE 2 Signed Report PROTHROMBIN TIME 2018-12-24 18:06:00 Test Item PROTHROMBIN TIME PATIENT (test code = PTP) 10.3 SECONDS 9.6-11.6 N INTERNATIONAL NORMAL RATIO (test code = INR) 1.0 0.8-1.1 N The INR is to be used only for monitoring oral anticoagulanttherapy. INDICATION INR VALUE 1. Prophylaxis, deep venous thrombosis, including high risk surgery. 2.0 - 3.0 2. Prophylaxis, deep venous thrombosis, hip surgery, treatment for deep venous thrombosis or pulmonary prevention of systemic embolism in patients with valvular heart disease, atrial fibrillation, tissue heart valve, or acute myocardial infarction. 2.0 - 3.0 3. M echanical prosthesis heart valves, recurrent systemic embolism. 3.0 - 4.5 COMPREHENSIVE METABOLIC [id number] 18:04:00* Test Item Value Reference Range Interpretation Comments SODIUM (test code = NA) 137 MMOL/L 137-145 N POTASSIUM (test code = K) 4.4 MMOL/L 3.5-5.1 N CHLORIDE (test code = CL) 104 MMOL/L 98-107 N CARBON DIOXIDE (test code = CO2) 24 MMOL/L 22-30 N GLUCOSE (test code = GLU) 96 MG/DL 74-106 N BLOOD UREA NITROGEN (test code = BUN) 13 MG/DL 7-17 N GLOMERULAR FILTRATION RATE (test code = GFR) > 60 Reporting units: ml/min/1.73 m2 (Modified MDRD Formula)Reference Range: > or = 60 ml/min/1.73 m2 CREATININE (test code = CREAT) 0.50 MG/DL 0.52-1.04 L TOTAL PROTEIN (test code = PROT) 8.0 G/DL 6.3-8.2 N ALBUMIN (test code = ALB) 3.9 G/DL 3.5-5.0 N CALCIUM (test code = CA) 9.6 MG/DL 8.4-10.2 N BILIRUBIN TOTAL (test code = BILT) < 0.1 MG/DL 0.2-1.3 L SGOT/AST (test code = AST) 27 UNITS/L 14-36 N SGPT/ALT (test code = ALT) 14 UNITS/L 9-52 N ALKALINE PHOSPHATASE (test code = ALKP) 98 UNITS/L 38-126 N CBC W/AUTO [id number] 17:53:00* Test Item Value Reference Range Interpretation Comments WHITE BLOOD CELL (test code = WBC) 7.8 K/MM3 3.8-9.8 N RED BLOOD CELL (test code = RBC) 3.37 M/MM3 3.58-4.97 L HEMOGLOBIN (test code = HGB) 7.7 G/DL 11.2-14.9 L HEMATOCRIT (test code = HCT) 26.0 % 33.2-43.5 L MEAN CELL VOLUME (test code = MCV) 77 fL 80.7-99.1 L MEAN CELL HGB (test code = MCH) 22.8 pg 27.0-34.1 L MEAN CELL HGB CONCETRATION (test code = MCHC) 29.6 % 32.2-35. 7 L RED CELL DISTRIBUTION WIDTH (test code = RDW) 16.0 % 12.1-15. 2 H PLATELET COUNT (test code = PLT) 447 K/MM3 129-368 H MEAN PLATELET VOLUME (test code = MPV) 10.2 fl 7.4-10.4 N NEUTROPHIL % (test code = NT%) 57.2 % 43-75 N IMMATURE GRANULOCYTE % (test code = IG%) 0.1 % 0.0-2.0 N LYMPHOCYTE % (test code = LY%) 30.8 % 14-44 N MONOCYTE % (test code = MO%) 8.9 % 4-13 N EOSINOPHIL % (test code = EO%) 2.4 % 0-6 N BASOPHIL % (test code = BA%) 0.6 % 0-2 N NUCLEATED RBC % (test code = NRBC%) 0.0 % 0-1.0 N NEUTROPHIL # (test code = NT#) 4.4 K/mm3 2.0-7.6 N IMMATURE GRANULOCYTE # (test code = IG#) 0.01 x10 3/uL 0-0.03 N LYMPHOCYTE # (test code = LY#) 2.4 K/mm3 1.0-3.8 N MONOCYTE # (test code = MO#) 0.69 K/mm3 0.1-0.8 N EOSINOPHIL # (test code = EO#) 0.2 K/mm3 0.0-0.2 N BASOPHIL # (test code = BA#) 0.05 K/mm3 0.0-0.2 N NUCLEATED RBC # (test code = NRBC#) 0.0 K/mm3 0.0-0.1 N
--- OUTSIDE RECORDS SUMMARY | 2020-10-10 19:29 | XMS REPORT | Continuity of Care Document ---
Author Author Fletcher Mariaann [employer] NIK Hernadez Organization [facility] Address Unknown Phone Unavailable Care Team Providers Care Transfusion Aide Name Role Phone [employer] Information S[employer]ron Unavailable Un available Problems Problem Status Onset Date Classification Date Reported Comments Source Malignant neoplasm of stomach, unspecified 06/15/2019 06/17/2019 [facility] Anemia (disorder) Active Problem 06/17/2019 transfused in April at [facility] hosp. [facility] Epilepsy (disorder) Active Problem 06/17/2019 last seizure 25 yrs ago [facility] Malignant tumor of stomach (disorder) Active Problem [facility] Gastritis (disorder) Active Problem 06/17/2019 [facility] Medications Medication Details Route Status Patient Instructions Ordering Provider Order Date Source Hydralazine 10 mg = 0.5 mL, In jection, IV Push, As Indicated PRN for hypertension, first dose 06/15/19 8:14:00 CDT Inactive 06/15/2019 [facility] Diphenhydramine 25 mg = 0.5 mL , Injection, IV Push, Once PRN for itching, first dose 06/15/19 8:14:00 CDT Inactive 06/15/2019 [facility] Levalbuterol 0.21 MG/ML Inhalant Solution [Xopenex] 0.63 mg = 3 mL, Soln, NEB, Once PRN for wheezing, first dose 06/15/19 8:14:00 CDT Inactive 06/15/2019 [facility] Ondansetron 4 mg = 2 mL, Injec tion, IV Push, q15min PRN for nausea, order duration: 2 doses, first dose 06/15/19 8:14:00 CDT, stop date Limited # of times Inactive 06/15/2019 [facility] Promethazine 12.5 mg = 0.5 mL, Injection, IM, Once PRN for vomiting, first dose 06/15/19 8:14:00 CDT Inactive 06/15/2019 [facility] Labetalol 5 mg = 1 mL, Injecti on, IV Push, As Indicated PRN for hypertension, first dose 06/15/19 8:14:00 CDT Inactive 06/15/2019 [facility] Robinul 0.2 mg = 1 mL, Injecti on, IV Push, Once PRN for bradycardia, first dose 06/15/19 8:14:00 CDT Inactive 06/15/2019 [facility] Dilaudid 0.5 mg = 0.5 mL, Inje ction, IV Push, q10min PRN for pain severe (7-10), first dose 06/15/19 8:14:00 CDT Inactive 06/15/2019 [facility] LR 1,000 mL 1,000 mL, IV, 75 m L/hr, start date 06/15/19 8:14:00 CDT Inactive 06/15/2019 [facility] Saline Lock Flush 10 mL, Soln, IV Push, As Indicated PRN for flush, first dose 06/15/19 8:14:00 CDT Inactive 06/15/2019 [facility] Morphine 2 mg = 0.2 mL, Inject ion, IV Push, q5min PRN for pain, first dose 06/15/19 8:14:00 CDT Inactive 06/15/2019 [facility] Misc Medication 1,000 mL, Soln -IV, IV, Once, first dose 06/15/19 8:13:00 CDT, stop date 06/15/19 8:13:00 CDT Inactive 06/15/2019 [facility] ePHEDrine 10 mg = 0.2 mL, Inje ction, IV, Once, first dose 06/15/19 7:58:00 CDT, stop date 06/15/19 7:58:00 CDT Inactive 06/15/2019 [facility] ondansetron 4 mg = 2 mL, Injec tion, IV, Once, first dose 06/15/19 7:53:00 CDT, stop date 06/15/19 7:53:00 CDT Inactive 06/15/2019 [facility] fentaNYL 25 mcg = 0.5 mL, Inje ction, IV, Once, first dose 06/15/19 7:50:00 CDT, stop date 06/15/19 7:50:00 CDT Inactive 06/15/2019 [facility] raNITIdine 50 mg, Injection, I V, Once, first dose 06/15/19 7:46:00 CDT, stop date 06/15/19 7:46:00 CDT Inactive 06/15/2019 [facility] dexamethasone 8 mg = 2 mL, Inj ection, IV, Once, first dose 06/15/19 7:44:00 CDT, stop date 06/15/19 7:44:00 CDT Inactive 06/15/2019 [facility] ePHEDrine 10 mg = 0.2 mL, Inje ction, IV, Once, first dose 06/15/19 7:43:00 CDT, stop date 06/15/19 7:43:00 CDT Inactive 06/15/2019 [facility] fentaNYL 25 mcg = 0.5 mL, Inje ction, IV, Once, first dose 06/15/19 7:38:00 CDT, stop date 06/15/19 7:38:00 CDT Inactive 06/15/2019 [facility] ePHEDrine 5 mg = 0.1 mL, Injec tion, IV, Once, first dose 06/15/19 7:38:00 CDT, stop date 06/15/19 7:38:00 CDT Inactive 06/15/2019 [facility] ceFAZolin 2 gm, Soln-IV, IV Pi ggyback, Once, first dose 06/15/19 7:31:00 CDT, stop date 06/15/19 7:31:00 CDT Inactive 06/15/2019 [facility] ePHEDrine 10 mg = 0.2 mL, Inje ction, IV, Once, first dose 06/15/19 7:31:00 CDT, stop date 06/15/19 7:31:00 CDT Inactive 06/15/2019 [facility] propofol 100 mg = 10 mL, Emuls ion, IV, Once, first dose 06/15/19 7:25:00 CDT, stop date 06/15/19 7:25:00 CDT Inactive 06/15/2019 [facility] lidocaine 50 mg = 2.5 mL, Inje ction, IV, Once, first dose 06/15/19 7:25:00 CDT, stop date 06/15/19 7:25:00 CDT Inactive 06/15/2019 [facility] midazolam 2 mg = 2 mL, Injecti on, IV, Once, first dose 06/15/19 7:16:00 CDT, stop date 06/15/19 7:16:00 CDT Inactive 06/15/2019 [facility] fentaNYL 50 mcg = 1 mL, Inject ion, IV, Once, first dose 06/15/19 7:16:00 CDT, stop date 06/15/19 7:16:00 CDT Inactive 06/15/2019 [facility] Cefazolin 2 gm, Soln-IV, IV Pi ggyback, Once, infuse over 30 minutes, first dose 06/15/19 7:00:00 CDT, stop date 06/15/19 7:00:00 CDT, patient weight 50-120 kg, Prophylaxis Inactive 06/15/2019 [facility] LR 1,000 mL 1,000 mL, IV, 30 m L/hr, start date 06/15/19 6:43:00 CDT Inactive 06/15/2019 [facility] Lidocaine 2% 0.2 mL IV Start [[place]] 0.2 mL, Injection, Subcutaneous, Once PRN for other (see comment), first dose 06/15/19 6:43:00 CDT Inactive 06/15/2019 [facility] Omeprazole 1 tab, Oral, Daily, gastritis Active 06/12/2019 [facility] Allergies, Adverse Reactions, Alerts No Known Medication Allergies Immunizations No Data Provided for This Section Results Order Name Results Value Reference Range Date Interpretation Comments Source LABORATORY Creatinine 0.5 0.6 - 1.3 06/15/2019 [facility] BUN 9 8 - 26 06/15/2019 [facility] Glucose Lvl 97 70 - 105 06/15/2019 [facility] Carbon Dioxide Level 27 24 - 29 06/15/2019 [facility] Hematocrit 30 38 - 51 06/15/2019 [facility] Results Repor christine (06/15/19 7:18 AM) 06/15/2019 [facility] AGAP 16 8 - 16 06/15/2019 [facility] Hemoglobin 10.2 12.0 - 17.0 06/15/2019 [facility] Potassium Level 3.8 3.5 - 4.9 06/15/2019 [facility] Sodium Level 141.0 138.0 - 146.0 06/15/2019 [facility] Calcium Level Ionized 1.2 5 1.12 - 1.32 06/15/2019 [facility] Chloride Level 103 98 - 109 06/15/2019 [facility] Pathology Reports No Data Provided for This Section Diagnostic Reports No Data Provided for This Section Consultation Notes No Data Provided for This Section Discharge Summaries No Data Provided for This Section History and Physicals No Data Provided for This Section Vital Signs Vital Sign Value Date Comments Source Systolic (mm Hg) 127 06/15/2019 [facility] Diastolic (mm Hg) 72 06/15/2019 [facility] Peripheral Pulse Rate 84 06/15/2019 [facility] Respitory Rate 16 06/15/2019 [facility] Systolic (mm Hg) 132 06/15/2019 [facility] Diastolic (mm Hg) 67 06/15/2019 [facility] Respitory Rate 14 06/15/2019 [facility] Heart Rate 80 06/15/2019 [facility] Heart Rate 86 06/15/2019 [facility] Respitory Rate 16 06/15/2019 [facility] Systolic (mm Hg) 143 06/15/2019 [facility] Diastolic (mm Hg) 68 06/15/2019 [facility] Heart Rate 80 06/15/2019 [facility] Temperature Oral (F) 36.8 Estephanie 06/15/2019 [facility] Weight Measured 78.47 06/15/2019 [facility] Peripheral Pulse Rate 76 06/15/2019 [facility] Temperature Oral (F) 36.7 Estephanie 06/15/2019 [facility] Height 162.56 cm 06/15/2019 [facility] Weight Measured 78.47 06/12/2019 [facility] Height 162.56 cm 06/12/2019 [facility] Encounters Location Location Details Encounter Type Encounter Number Reason For Visit Attending Provider ADM Date DC Date Status Source [facility] Ou tpatient [id number] Laci Parisi 06/15/2019 06/15/2019 Active [facility] [place] [facility] [id number] Mikey Andrés Parisi 06/15/2019 06/15/2019 [facility] Procedures Procedure Code Date Perfomer Comments Source INSERTION TUNNELED IMPLANTABLE VENOUS AC CESS PORT 54059 (N/A)<sup>1</sup> 06/15/2019 auto-populated from documented surgical case [facility] Cholecystectomy [id number] 05/01/2019 [facility] partial gastrectomy<sup>2, 3, 4</sup> 05/01/2019 "stomach cancer"partial gastrectomyfull liquid diet currently [facility] eye surgery<sup>5</sup> 11/18/2014 "put permanent contact lenses in [place]" [facility] Hysterectomy<sup>6</sup> [id number] 11/18/2007 due to cancer [facility] Assessment and Plan No Data Provided for This Section Plan of Care No Data Provided for This Section Social History Social History Date Source Social History TypeResponse Smoking Status Former smoker, quit more than 30 days ago; Type: Cigarettes1 entered on: 06/12/19 1quit 35years ago 06/12/2019 [facility] Family History No Data Provided for This Section Advance Directives No Data Provided for This Section Functional Status No Data Provided for This Section
[2020-10-10 20:20] VITALS: BP 142/78
--- NOTE | 2020-10-10 20:20 | NUR ---
REPORT RECEIVED FROM ER. PT SEEN ON 10/08/20 IN [facility] ER FOR ABD PAIN. PT TOLED HAD BACTERIA INSTOMACH. HX STOMACH CANCER- MATY BEEN TOLD CANCER GONE.PT ALSO REPORT HAVING PROBLEM WITH CONSTIPATION. COVID TEST RESULTS PENDING. PT ALERT AND ORIENTED X3. RESPIRATIONS ARE EVEN AND UNLABORED.PIV LEFT 20G AC. SITE HEALTHY. NS INFUSING AT 75ML/HR.ADMISSION DONE VIA [employer]. PT ORIENTED TO [facility] [place] [facility], ROOM. PT VERBALIZED UNDERSTANDING. PT NPO FOR LAP APPE THIS AM.CALL LIGHT WITHIN REACH. BED LOCKED AND IN LOW POSITION.
[2020-10-10 20:30] VITALS: BP 138/82
[2020-10-11] VITALS (8 sets, daily range): BP systolic 117–143; BP diastolic 65–78
--- NOTE | 2020-10-11 01:21 | NUR ---
DR. Ann-Marie SMITH CONTACTED REGARDING ANTIBIOTIC ORDER; NEW ORDER RECEIVED
[2020-10-11] MEDS ORDERED: PIPER-TAZ 3.375 GM 50 ML IV ONE (01:30)
[2020-10-11] MEDS ORDERED: CLINDAMYCIN HC150 MG PO (04:54)
[2020-10-11] MEDS ORDERED: METRONIDAZOLE500 MG PO (04:54)
[2020-10-11] MEDS ORDERED: ULTRAM 50MG50 MG PO (04:54)
[2020-10-11] MEDS ORDERED: ZOFRAN4 MG PO (04:54)
[2020-10-11 05:57] LABS: BASOPHILS % 0.3 % (0.0-1.0); EOSINOPHILS # (AUTO) 0.1 (0.0-0.4); EOSINOPHILS % 1.9 % (0.0-6.0); HEMATOCRIT 31.1 % (34.2-44.1); HEMOGLOBIN 10.1 g/dL (12.0-16.0); LYMPHOCYTES # (AUTO) 0.6 (1.0-3.2); LYMPHOCYTES % 8.6 % (18.0-39.1); MEAN CORPUSCULAR HEMOGLOBIN 30.1 pg (28-32); MEAN CORPUSCULAR HGB CONC 32.5 g/dL (31-35); MEAN CORPUSCULAR VOLUME 92.8 fL (81-99); MONOCYTES # (AUTO) 0.8 (0.2-0.8); MONOCYTES % 11.3 % (4.4-11.3); NEUTROPHILS # (AUTO) 5.6 (2.1-6.9); NEUTROPHILS % 77.5 % (38.7-80.0); PLATELET COUNT 198 x10e3/uL (140-360); RED BLOOD COUNT 3.35 x10e6/uL (3.6-5.1)
[2020-10-11] MEDS ORDERED: FENTANYL CITRATE/PF 100MCG/2 ML INJ ONE ×2 (12:03→13:20)
[2020-10-11] MEDS ORDERED: MIDAZOLAM HCL 2 MG/2 ML VIAL ONE (12:03)
[2020-10-11] MEDS ORDERED: BUPIVACAINE HCL 0.5% INJ 30 ML VIAL INJ ONE (12:04)
[2020-10-11] MEDS ORDERED: ONDANSETRON HCL INJ 2MG/ML 2ML 2 MG/ML VIAL IV PRN (13:00)
[2020-10-11] MEDS ORDERED: HYDROCODONE/APAP 5MG-325MG TAB PO PRN (13:00)
[2020-10-11] MEDS ORDERED: ACETAMINOPHEN 325 MG TAB PO PRN (13:00)
--- NOTE | 2020-10-11 13:54 | NUR ---
patient back from surgery via stretcher. 3 trochar sites with bandaids in place with no bleeding. drowsy but easily arousable. zofran given for nausea.
--- NOTE | 2020-10-11 14:51 | Operative Report ---
DATE OF PROCEDURE: 10/11/2020 SURGEON: Beltran Wells MD PREOPERATIVE DIAGNOSIS: Acute appendicitis. POSTOPERATIVE DIAGNOSIS: Acute appendicitis. PROCEDURES: Diagnostic laparoscopy, laparoscopic appendectomy. PHP ARCHITECT: None. ANESTHESIA: General endotracheal. INDICATIONS AND FINDINGS: The patient is a 60-year-old female admitted with complaints of abdominal pain, localized right lower quadrant. Workup revealed acute appendicitis. Surgery based on the acutely inflamed appendix. TECHNIQUE: After adequate general endotracheal anesthesia, the patient in supine position, the abdomen was prepped and draped in sterile fashion with ChloraPrep solution. Skin in the umbilicus was infiltrated with 0.5% Marcaine. Incision was made in the umbilicus. Abdominal wall was elevated and Veress needle was introduced. Pneumoperitoneum was then created. A 10 mm trocar and cannula were then passed through the umbilical wound. Laparoscopic camera was introduced. Initial laparoscopy revealed inflammatory process in right lower quadrant. There were some adhesions in the upper abdomen involving omentum. A 12 mm trocar and cannula were placed suprapubically and a 5 mm trocar and cannula were placed in the right upper quadrant. These were placed under direct vision. There was small bowel adherent and was found to be acutely inflamed appendix. There were considerable fibrinous adhesions in the area. The right tube and ovary also adherent over the appendix. All these adhesions were broken up, freeing the structures from the appendix. The cecum was elevated. The mesoappendix was divided with the Harmonic scalpel. The appendix was free all the way down to its junction with the cecum. The appendix was then divided with the Endo-GIOVANNA stapler freeing it completely. The appendix was then placed into an Endopouch and brought out through the suprapubic cannula. Care was taken to not touch the abdominal wall. The area of the appendectomy was inspected for hemostasis, which was seen to be adequate. It was irrigated with saline. All fluid aspirated and inspected for hemostasis, which was seen to be adequate. Instruments and cannulas were then removed. Pneumoperitoneum was evacuated. Wounds were then closed. Fascia in the umbilical and suprapubic were closed with 0 Vicryl. Skin to all wounds closed with dimitris. Sterile dressings applied to each wound. The patient tolerated the procedure well. Estimated blood loss was 25 mL. There were no complications. All counts were correct. The patient was taken to the recovery room in satisfactory condition. Beltran W MD JETT Wells/ADAMA /[id number]
[2020-10-11] MEDS: SODIUM CHLORIDE 0.9% 1000ML 1,000 ML IV SCH (16:28)
[2020-10-11] MEDS ORDERED: ONDANSETRON HCL INJ 2MG/ML 2ML 2 MG/ML VIAL ONE (17:40)
[2020-10-11] MEDS ORDERED: LIDOCAINE HCL 2% LOCAL INJ 5 ML SDV VIAL INJ ONE (17:40)
[2020-10-11] MEDS ORDERED: CEFOXITIN SOD 1 GM VIAL ONE (17:40)
[2020-10-11] MEDS ORDERED: PROPOFOL IV EMULSION 10 MG/ML 20 ML VIAL ONE (17:40)
[2020-10-11] MEDS ORDERED: ROCURONIUM BROMIDE 10 MG/ML 5ML VIAL IV ONE (17:40)
[2020-10-11] MEDS ORDERED: SUCCINYLCHOLINE CHLORIDE 20 MG/ML 10ML VIAL ONE (17:40)
[2020-10-11] MEDS ORDERED: DEXAMETHASONE SOD PHOS INJ 4 MG/ML VIAL ONE (17:40)
[2020-10-11] MEDS ORDERED: SEVOFLURANE INHAL SOLN 250 ML PEN BTL ONE (17:40)
--- NOTE | 2020-10-11 17:56 | Consultation ---
DATE OF CONSULTATION: 10/11/2020 HISTORY OF PRESENT ILLNESS: The patient is a 60-year-old female presents with complaints of abdominal pain. She says it started three days ago. She has associated nausea. The pain has persisted and is in the lower abdomen. Evaluation of CT of the abdomen and pelvis revealed findings of acutely inflamed appendix. The patient has not had any fever. PAST MEDICAL HISTORY: Significant for previous gastrectomy, this was done about 18 months ago for which she has had cancer for stomach. Since then, she has no problems, eating without any problem. She denies any other medical problems. HOME MEDICATIONS: None. ALLERGIES: MORPHINE. FAMILY HISTORY: Noncontributory. SOCIAL HISTORY: The patient does not smoke cigarettes or drink alcohol. REVIEW OF SYSTEMS: As stated above, otherwise was negative. PHYSICAL EXAMINATION: GENERAL: The patient is awake and alert, in no distress. VITAL SIGNS: Heart rate 91, blood pressure is normal. She is afebrile. HEENT: Sclera is nonicteric. NECK: Supple. No masses. LUNGS: Equal breath sounds, clear bilaterally. CARDIAC: Regular rate and rhythm with no murmur. ABDOMEN: Healed upper midline wound. There is tenderness in the lower abdomen with signs of peritonitis, greatest in the mid lower abdomen. There is no mass. There is no distention. No organomegaly. EXTREMITIES: No edema. NEUROLOGIC: Grossly intact. LABORATORY TESTS: White blood cell count is normal with mild left-shifted differential, hemoglobin 10, hematocrit 31. Chemistries are essentially normal. ASSESSMENT: A 60-year-old female with acute appendicitis. She will benefit from appendectomy. PLAN: Procedure planned to schedule for today. Procedure was explained to the patient including risks, benefits and alternatives. She understands. She has had the opportunity to ask questions. She is aware of the possible need for open surgery. Thank you for asking me to see Ms. Forrest. MD JETT Alberto/ADAMA /[id number]
[2020-10-11] MEDS ORDERED: PIPER-TAZ 3.375 GM 50 ML IV SCH (18:00)
--- NOTE | 2020-10-11 18:11 | NUR ---
patient OOB to bathroom. did well.
--- NOTE | 2020-10-11 19:05 | NUR ---
Patient visited in room during nursing rounds. Patient alert and oriented x3. Mostly emirati speaking but understands some nauruan. Son at bedside visiting. S/P Lap Appendectomy today with 3 trocar site each covered with band aid (C/D/I). No c/o pain or nausea at this time. Call cassidy within reach. Will monitor pt closely.
--- NOTE | 2020-10-11 21:02 | History and Physical ---
CHIEF COMPLAINT: Abdominal pain. HISTORY OF PRESENT ILLNESS: This is a 60-year-old woman, who came in with abdominal pain for about a week. Initially, it was more diffuse with some nausea. The patient subsequently went to an urgent care and was prescribed some oral antibiotics; however, the pain did not improve, in fact, it got worse. Therefore, she presented to the emergency room. The patient denies fever. No chest pain. No shortness of breath. PAST MEDICAL AND SURGICAL HISTORY: Gastric cancer, status post partial gastrectomy last year. MEDICATIONS: None. ALLERGIES: TO MORPHINE. SOCIAL HISTORY: Does not smoke. Does not drink. FAMILY HISTORY: No cancer. REVIEW OF SYSTEMS: A 10-point review of systems was obtained and nothing else is significant other than what is stated in HPI. PHYSICAL EXAMINATION: VITAL SIGNS: Temperature 98.6, pulse 88, respiratory rate 18, blood pressure 123/70. GENERAL: No acute distress. SKIN: No rash. HEENT: Anicteric. Oropharynx is clear. LUNGS: Clear. HEART: Regular rate and rhythm. Normal S1 and S2. ABDOMEN: Soft. Tender. NEUROLOGIC: Alert and oriented x3. Cranial nerves II through XII grossly intact. PSYCHIATRIC: No hallucination. MUSCULOSKELETAL: Painless range of motion. LABORATORY DATA: White count 7, hemoglobin 10, and platelet count 198. Sodium 131 and creatinine 0.65. Lipase is normal. Troponin normal. CT is consistent with acute appendicitis. ASSESSMENT AND PLAN: 1. Acute appendicitis. We will continue Zosyn. The patient just underwent laparoscopic appendectomy. She is doing well postop. Diet per Surgery. 2. Gastrointestinal and deep venous thrombosis prophylaxis. No chemical deep venous thrombosis prophylaxis due to recent surgery. 3. Disposition, potentially she may be able to go home tomorrow if she is getting better. Yiching MD ANDRZEJ Dickson/ADAMA /[id number]
[2020-10-12] VITALS (7 sets, daily range): BP systolic 119–135; BP diastolic 65–77
[2020-10-12] MEDS: SODIUM CHLORIDE 0.9% 1000ML 1,000 ML IV SCH ×2 (00:23→15:30)
[2020-10-12] MEDS: PIPER-TAZ 3.375 GM 50 ML IV SCH ×4 (02:16→20:43)
[2020-10-12 06:10] LABS: BASOPHILS % 0.1 % (0.0-1.0); EOSINOPHILS % 0.1 % (0.0-6.0); HEMATOCRIT 30.2 % (34.2-44.1); HEMOGLOBIN 9.8 g/dL (12.0-16.0); LYMPHOCYTES # (AUTO) 0.6 (1.0-3.2); LYMPHOCYTES % 6.6 % (18.0-39.1); MEAN CORPUSCULAR HEMOGLOBIN 30.5 pg (28-32); MEAN CORPUSCULAR HGB CONC 32.5 g/dL (31-35); MEAN CORPUSCULAR VOLUME 94.1 fL (81-99); MONOCYTES # (AUTO) 0.8 (0.2-0.8); MONOCYTES % 8.6 % (4.4-11.3); NEUTROPHILS # (AUTO) 7.5 (2.1-6.9); NEUTROPHILS % 84.1 % (38.7-80.0); PLATELET COUNT 194 x10e3/uL (140-360); RED BLOOD COUNT 3.21 x10e6/uL (3.6-5.1); RED CELL DISTRIBUTION WIDTH 14.2 % (11.7-14.4)
[2020-10-12 06:31] LABS: ANION GAP 12.4 mmol/L (8-16); BLOOD UREA NITROGEN 10 mg/dL (7-26); BUN/CREATININE RATIO 20 (6-25); CALCIUM 8.1 mg/dL (8.4-10.2); CARBON DIOXIDE 22 mmol/L (22-29); CHLORIDE 108 mmol/L (98-107); CREATININE, SERUM 0.51 mg/dL (0.57-1.11); EST GLOMERULAR FILTRATION RATE > 60 ML/MIN (60-); GLUCOSE 110 mg/dL (74-118); POTASSIUM 3.4 mmol/L (3.5-5.1); SODIUM 139 mmol/L (136-145)
--- NOTE | 2020-10-12 07:00 | NUR ---
RECEIVED BEDSIDE REPORT FROM THE OFF GOING NIGHT NURSE. PATIENT IN STABLE CONDITION, NO S/S OF DISTRESS NOTED. RESPIRATIONS EVEN AND NONLABORED. PATIENT ABLE TO VOICE NEEDS. IV FLUIDS INFUSING, SITE ASYMPTOMATIC AND PATENT, TRANSPARENT DRESSING C/D/I/. BED IN LOWEST POSITION AND LOCKED, SIDE RAILS X 2, NONSKID SOCKS APPLIED. CALL LIGHT WITHIN REACH.
[2020-10-12 08:10] LABS: BAND NEUTROPHILS % (MANUAL) 11 %; LYMPHOCYTES % (MANUAL) 3 % (19-48); MONOCYTES % (MANUAL) 4 % (3.4-9.0); NEUTROPHILS % (MANUAL) 82 % (40-74)
[2020-10-12 08:12] LABS: PLATELET ESTIMATE ADEQUATE; PLATELET MORPHOLOGY COMMENT NORMAL; RBC MORPHOLOGY COMMENT NORMAL
[2020-10-12] MEDS ORDERED: POTASSIUM CHLORIDE 20 MEQ TAB CR PO ONE (09:38)
--- NOTE | 2020-10-12 19:07 | NUR ---
Nutrition Screen Note RD Recommendation for Physician: -Recommend advancing to GI soft diet when medically appropriate Plan of Care: RD following, monitoring for tolerance and adequacy Nutrition reason for involvement: Nutrition Risk Trigger Primary Diagnose(s): acute appendicitis, adynamic ileus PMH: Gastric cancer, status post partial gastrectomy last year. Ht: 60.3 in Wt:127 lb BMI: 24.6 kg/m2 IBW:[address] Assessment: (10/12/20) Chart reviewed. Labs and meds reviewed. Pt is a 60 year old female admitted with acute appendicitis and adynamic ileus. Pt is primarily Armenian speaking per chart. There are no reports of decreased appetite prior to admission, but pt reports unsure weight loss. There are no previous weights in chart. Pt is currently on a clear liquid diet with 75% meal intake recorded. Recommend advancing diet when medically appropriate. Will continue to monitor. Current Diet: clear liquids Malnutrition Evaluation (10/12/20) The patient does not meet criteria for a specified degree of malnutrition at this time. Will re-evaluate at follow-up as appropriate. Diet Education Needs Assessment: Diet education not indicated. Nutrition Care Level: low Signed: Maisha Wilson, RD, LD
--- NOTE | 2020-10-12 19:25 | NUR ---
RECEIVED BEDSIDE SHIFT REPORT FROM PREVIOUS NURSE. CALL LIGHT WITHIN REACH. PATIENT IN BED. SON AT THE BEDSIDE
--- NOTE | 2020-10-12 19:36 | NUR ---
COMPLETED BEDSIDE REPORT AND ROUNDING WITH ON COMING NIGHT NURSE. PATIENT IN STABLE CONDITION, NO S/S OF DISTRESS NOTED. RESPIRATIONS EVEN AND NONLABORED. PATIENT ABLE TO VOICE NEEDS. IV FLUIDS INFUSING, SITE ASYMPTOMATIC AND PATENT, TRANSPARENT DRESSING C/D/I/. SON AT BEDSIDE. BED IN LOWEST POSITION AND LOCKED, SIDE RAILS X 2, NONSKID SOCKS APPLIED. CALL LIGHT WITHIN REACH.
--- NOTE | 2020-10-12 20:03 | Progress Note ---
DATE: 10/12/2020 SUBJECTIVE: Abdominal pain is better. OBJECTIVE: VITAL SIGNS: Temperature 97.6, pulse 84, respiratory rate 18, and blood pressure 127/73. GENERAL: No acute distress. SKIN: No rash. LUNGS: Clear. HEART: Regular rate and rhythm. Normal S1 and S2. ABDOMEN: Soft and nondistended. NEUROLOGIC: Alert and oriented x3. PSYCHIATRIC: No hallucination. LABORATORY DATA: White count 9 with 11% bands, hemoglobin 9.8, and platelet count 194. Creatinine 0.5, potassium 3.4, and sodium 139. ASSESSMENT AND PLAN: 1. Acute appendicitis. Postop day #1 for laparoscopic appendectomy. Discussed with Dr. Wells. Her appendix was very inflamed, which explains her low-grade fever last night and bandemia today. We will continue Zosyn. Monitor for another day. Diet per Surgery. 2. Hyponatremia, resolved. 3. Hypokalemia. We will replete. 4. Gastrointestinal and deep venous thrombosis prophylaxis. No chemical deep venous thrombosis prophylaxis due to recent surgery. MD ANDRZEJ Jean/ADAMA /[id number]
[2020-10-13] VITALS: BP 127/70
[2020-10-13] MEDS: SODIUM CHLORIDE 0.9% 1000ML 1,000 ML IV SCH (00:07)
[2020-10-13] MEDS: PIPER-TAZ 3.375 GM 50 ML IV SCH ×2 (01:48→08:30)
[2020-10-13 04:00] VITALS: BP 120/68
[2020-10-13 04:58] LABS: BASOPHILS % 0.3 % (0.0-1.0); EOSINOPHILS # (AUTO) 0.3 (0.0-0.4); EOSINOPHILS % 4.7 % (0.0-6.0); HEMATOCRIT 30.9 % (34.2-44.1); LYMPHOCYTES # (AUTO) 0.8 (1.0-3.2); LYMPHOCYTES % 14.1 % (18.0-39.1); MEAN CORPUSCULAR HEMOGLOBIN 30.6 pg (28-32); MEAN CORPUSCULAR HGB CONC 32.4 g/dL (31-35); MEAN CORPUSCULAR VOLUME 94.5 fL (81-99); MONOCYTES # (AUTO) 0.6 (0.2-0.8); MONOCYTES % 10.6 % (4.4-11.3); NEUTROPHILS # (AUTO) 4.1 (2.1-6.9); NEUTROPHILS % 69.6 % (38.7-80.0); PLATELET COUNT 194 x10e3/uL (140-360); RED BLOOD COUNT 3.27 x10e6/uL (3.6-5.1); RED CELL DISTRIBUTION WIDTH 14.1 % (11.7-14.4)
[2020-10-13 05:21] LABS: ANION GAP 10.4 mmol/L (8-16); BLOOD UREA NITROGEN 9 mg/dL (7-26); BUN/CREATININE RATIO 18 (6-25); CALCIUM 8.2 mg/dL (8.4-10.2); CARBON DIOXIDE 24 mmol/L (22-29); CHLORIDE 107 mmol/L (98-107); CREATININE, SERUM 0.51 mg/dL (0.57-1.11); EST GLOMERULAR FILTRATION RATE > 60 ML/MIN (60-); GLUCOSE 90 mg/dL (74-118); POTASSIUM 3.4 mmol/L (3.5-5.1); SODIUM 138 mmol/L (136-145)
--- NOTE | 2020-10-13 07:00 | NUR ---
RECEIVED BEDSIDE SHIFT REPORT FROM THE OFF GOING NIGHT NURSE. PATIENT IN STABLE CONDITION, NO S/S OF DISTRESS NOTED. RESPIRATIONS EVEN AND NONLABORED. PATIENT ABLE TO VOICE NEEDS. IV FLUIDS INFUSING, SITE ASYMPTOMATIC AND PATENT, TRANSPARENT DRESSING C/D/I/. ABDOMEN INCISIONS C/D/I LEFT OPEN TO AIR. BED IN LOWEST POSITION AND LOCKED, SIDE RAILS X 2, NONSKID SOCKS APPLIED. CALL LIGHT WITHIN REACH.
--- NOTE | 2020-10-13 07:29 | NUR ---
GAVE BEDSIDE SHIFT TO ONCOMING NURSE. CALL LIGHT WITHIN REACH. PATIENT IN BED. HOURLY ROUNDING PERFORMED.
[2020-10-13] MEDS ORDERED: POTASSIUM CHLORIDE 20 MEQ TAB CR PO STA (08:16)
[2020-10-13 08:23] VITALS: BP 114/69
[2020-10-13] MEDS ORDERED: MAGNESIUM SULFATE 2GM/50ML 50 ML IV ONE (08:30)
[2020-10-13 09:12] VITALS: BP 114/69
[2020-10-13] MEDS ORDERED: AUGMENTIN 500-1 EACH PO (12:52)
[2020-10-13] MEDS ORDERED: TYLENOL # 31 EA PO (12:53)
--- NOTE | 2020-10-13 14:33 | NUR ---
PATIENT DISCHARGED HOME. PATIENT OFF THE UNIT @ 1427 VIA WHEELCHAIR ACCOMPANIED TO THE LOBBY BY PCT. PATIENT IN STABLE CONDITION, NO S/S OF DISTRESS NOTED. NO PAIN VOICED. IV ACCESS REMOVED WITH TIP INTACT. ALL PERSONAL ITEMS TAKEN WITH THE PATIENT. DISCHARGE TEACHING AND INSTRUCTION GIVEN TO THE PATIENT. PATIENT VERBALIZED UNDERSTANDING. DISCHARGE PAPERWORK AND PRESCRIPTION GIVEN TO THE PATIENT.
[2020-10-13 14:37] VITALS: BP 128/80
--- NOTE | 2020-10-13 16:16 | Discharge Summary ---
FINAL DIAGNOSIS: Severely inflamed acute appendicitis. COOK FRY: Dr. Wells, Surgery. PROCEDURES/STUDIES PERFORMED: 1. CT of the abdomen and pelvis. 2. Laparoscopic appendectomy. HISTORY: Per dictated H and P. HOSPITAL COURSE: The patient was started on Zosyn. The patient underwent uneventful laparoscopic appendectomy. Postop, the patient had low-grade fever and also bandemia, both have resolved. Currently tolerating p.o. I have discussed with Dr. Wells. We will go ahead and discharge her home today with amoxicillin for 5 more days. The patient will follow up with Dr. Wells in one week. The patient was seen and examined today. It took 32 minutes to discharge this patient. I have updated her son at the bedside as well. CONDITION ON DISCHARGE: Improved. DISCHARGE MEDICATIONS: Please see medication reconciliation form. MD ANDRZEJ Jean/ADAMA /[id number]
== END 2020-10-13 14:45 | disposition home or self-care (01) ==
LOC: ER 13:35 → ERHOLD 18:41 → MED/SURG 21:20
PROVIDERS: ADMIT Internal Medicine; ATTEND Internal Medicine
DX: K35.80 Unspecified acute appendicitis (principal); K66.0 Peritoneal adhesions (postprocedural) (postinfection); Z85.028 Personal history of other malignant neoplasm of stomach; Z88.5 Allergy status to narcotic agent; D72.825 Bandemia; Z20.828 Contact with and (suspected) exposure to other viral communicable diseases
CPT/HCPCS: 36415 ×4; 44970; 74177; 80048 ×2; 80053; 81001; 82550; 82553; 83690; 83735; 84484; 85025 ×4; 88304; 93005; 99284; G0378 ×4; J0330; J0694; J1100; J2001; J2250; J2405 ×2; J2543 ×3; J2704; J3010; J3475; J7030 ×4; J7120; J7121; Q9967; U0002